=== PATIENT | female | born 1940 | race Two or more races ===

== ENCOUNTER 2018-11-25 08:13 | Inpatient (IN) | payer OTHER ==
--- NOTE | 2018-11-25 08:36 | PDOC ---
History of Present Illness - General Chief Complaint: Injury Stated Complaint: DIZZY & FELL Time Seen by Provider: 11/25/18 08:25 - History of Present Illness Initial Comments: Ms. Kearns is a 78 y/o female with PMH significant for KS s/p CABG and cardiac cath, hypothyroidism, hypotension, vertigo, presenting today for syncope and fall 2 hours ago. Reports that she was getting up from the toilet when she felt weakness in her legs and fell. Reports LOC. Reports that she fell on her left hip. Denies head trauma. Denies chest pain or palpitations prior to fall. Denies shortness of breath. Reports nausea, denies vomiting. Denies headache. Reports mild dizziness. Reports mildly decreased PO intake. Past History - Past Medical History Allergies/Adverse Reactions: Allergies Allergy/AdvReac Type Severity Reaction Status Date / Time No Known Allergies Allergy Verified 10/01/18 08:32 Home Medications: Ambulatory Orders Acetaminophen [Pain Reliever] 500 mg PO QID PRN 08/29/15 Atorvastatin Ca [Lipitor] 40 mg PO HS 08/29/15 Calcium 250Mg/Vit-D 125 Units [Oscal 250 mg+D -] 1 combo PO DAILY 08/29/15 Diclofenac Sodium [Voltaren] 100 gm TP BID 08/29/15 Ergocalciferol (Vitamin D2) [Drisdol] 50,000 units PO WEEKLY 08/29/15 Meclizine HCl 25 mg PO HS 08/29/15 Oxycodone HCl/Acetaminophen [Percocet 5-325 mg Tablet] 1 tab PO Q4H PRN Ranolazine [Ranexa] 1,000 mg PO BID 08/29/15 Solifenacin Succinate [Vesicare -] 10 mg PO DAILY 08/29/15 Vitamin B Comp W-C [Total B with C] 1 each PO DAILY 08/29/15 Zolpidem Tartrate [Ambien] 5 mg PO HS 08/29/15 propRANOLol HCL [Inderal Xl] 80 mg PO DAILY 08/29/15 Aspirin 81 mg PO DAILY 11/25/18 Dexlansoprazole [Dexilant] 60 mg PO DAILY 11/25/18 Gabapentin 300 mg PO DAILY 11/25/18 Levothyroxine [Synthroid -] 50 mcg PO DAILY 11/25/18 Mirabegron [Myrbetriq] 50 mg PO DAILY 11/25/18 Quetiapine Fumarate [Seroquel -] 25 mg PO HS 11/25/18 Cardiac Disorders: Yes ([place]) COPD: No Thyroid Disease: Yes - Immunization History Immunization Up to Date: No - Psycho Social/Smoking Cessation Hx Smoking History: Never smoked Have you smoked in the past 12 months: No If you are a former smoker, when did you quit?: 18 years ago Information on smoking cessation initiated: No Hx Alcohol Use: No Drug/Substance Use Hx: No Substance Use Type: None Review of Systems - Review of Systems Comments:: ROS GENERAL/CONSTITUTIONAL: No fever or chills. Reports lower extremity weakness. HEAD, EYES, EARS, NOSE AND THROAT: No change in vision. No change in hearing. No sore throat._ CARDIOVASCULAR: No chest pain or shortness of breath_ RESPIRATORY: Denies cough, hemoptysis_ GASTROINTESTINAL: Reports nausea. Denies vomiting, diarrhea or constipation._ GENITOURINARY: Reports mild dysuria. Denies frequency, or change in urination._ MUSCULOSKELETAL: Reports left hip pain. No neck or back pain._ SKIN: No rash_ NEUROLOGIC: No headache, vertigo, change in strength/sensation. Reports LOC and dizziness. ENDOCRINE: No increased thirst. No abnormal weight change_ HEMATOLOGIC/LYMPHATIC: No anemia, easy bleeding, or history of blood clots._ ALLERGIC/IMMUNOLOGIC: No hives or skin allergy._ *Physical Exam - Vital Signs Last Vital Signs Temp Pulse Resp BP Pulse Ox 98.4 F 86 16 128/56 L 98 11/25/18 08:19 11/25/18 08:19 11/25/18 08:19 11/25/18 08:19 11/25/18 08:19 - Physical Exam Comments: GENERAL: Awake, alert, and oriented to person/place/time, in no acute distress_ HEAD: No signs of trauma, normocephalic, atraumatic _ EYES: PERRLA, EOMI, sclera anicteric, conjunctiva clear_ ENT: Hearing grossly normal, nares patent, oropharynx clear without exudates. No uvular deviation. Moist mucosa_ NECK: Normal ROM, supple, no lymphadenopathy, JVD, or masses_ LUNGS: No distress, speaks in full sentences, clear to auscultation bilaterally _ HEART: Regular rate and rhythm, normal S1 and S2, no murmurs appreciated, peripheral pulses normal and equal bilaterally._ ABDOMEN: Soft, nontender. No guarding, no rebound. No masses_ EXTREMITIES: Normal inspection, Normal range of motion, no edema. No clubbing or cyanosis_ NEUROLOGICAL: Cranial nerves II through XII grossly intact. Normal speech, normal gait, no focal sensorimotor deficits. Cerebellar testing negative. No ataxia. SKIN: Warm, Dry, normal turgor, no rashes or lesions noted. ED Treatment Course - LABORATORY CBC & Chemistry Diagram: 11/26/18 06:10 11/25/18 08:54 Medical Decision Making - Medical Decision Making 11/25/18 09:05 78F with hx of KS, CABG, cardiac cath, hypothyroid, hypotension, vertigo, presenting s/p syncope, lower extremity weakness, and fall 2 hours ago. DDx is broad includes syncope due to cardiac etiology vs orthostatic etiology vs dehydration. Will obtain CBC, CMP, UA/UC, EKG, trop, CT head, coags, CXR. Plan to admit for tele obs. 11/25/18 0833 EKG shows NSR, 83 bpm, no ST elevation/depression, QTC 390 ms. 11/25/18 11:41 CT head shows no acute intracranial pathology. 11/25/18 12:[address] Merchant's office, who admits for Dr. Erazo. Dr. José (covering MD ) paged. Discharge - Discharge Information Problems reviewed: Yes Clinical Impression/Diagnosis: Syncope Qualifiers: Syncope type: unspecified Qualified Code(s): R55 - Syncope and collapse Condition: Stable - Admission Yes - Follow up/Referral - Patient Discharge Instructions - Post Discharge Activity
[2018-11-25] MEDS ORDERED: ONDANSETRON 4 MG/2 ML VIAL IVPUSH ONE (09:02)
[2018-11-25] MEDS ORDERED: ONDANSETRON 4 MG/2 ML VIAL ONE (09:21)
--- NOTE | 2018-11-25 09:27 | PDOC ---
Attending Attestation - Resident Resident Name: Don Solomon - ED Attending Attestation I have performed the following: I have examined & evaluated the patient, The case was reviewed & discussed with the resident, I agree w/resident's findings & plan, Exceptions are as noted - HPI HPI: 11/25/18 09:24 78 F with h/o VT/CABG, hypothyroid, vertigo, presenting to ED with syncopal episode. Pt states that she was in the bathroom when the episode occurred. She recalls feeling weak in the legs but has no recollection of the fall. Pt awoke on the floor. Denies CP/SOB/palpitations. Does not know how long she was unconscious. Now complaining of nausea. - Physicial Exam PE: 11/25/18 09:26 "GENERAL: Awake, alert, and fully oriented, in no acute distress. HEAD: No signs of trauma EYES: PERRLA, EOMI, sclera anicteric, conjunctiva clear ENT: Auricles normal inspection, hearing grossly normal, nares patent, oropharynx clear without exudates. Moist mucosa NECK: Nontender, no stepoffs, Normal ROM, supple, no lymphadenopathy, JVD, or masses LUNGS: Breath sounds equal, clear to auscultation bilaterally. No wheezes, and no crackles HEART: Regular rate and rhythm, normal S1 and S2, no murmurs, rubs or gallops ABDOMEN: Soft, nontender, normoactive bowel sounds. No guarding, no rebound. No masses EXTREMITIES: Normal range of motion, no edema. No clubbing or cyanosis. No cords, erythema, or tenderness NEUROLOGICAL: Cranial nerves II through XII intact. 5/5 strength and sensation in all extremities, Normal speech, normal gait, normal cerebellar function SKIN: Warm, Dry, normal turgor, no rashes or lesions noted. - Medical Decision Making 11/25/18 09:26 78 F with syncopal episode in the bathroom. EKG is NSR with no ischemic changes or evidence of arrhythmia. - labs, trop - CT head - CXR - Tele obs
[2018-11-25 09:29] LABS: BASO % 0.3 % (0-2.0); EOS % 0.8 % (0-4.5); HEMATOCRIT 43.8 % (32.4-45.2); HEMOGLOBIN 14.4 GM/dL (10.7-15.3); LYMPH % 9.8 % (8-40); MCH 29.7 pg (25.7-33.7); MCHC 32.8 g/dl (32.0-36.0); MEAN CELL VOLUME 90.3 fl (80-96); MEAN PLT VOLUME 11.2 fl (7.5-11.1); MONO % 3.6 % (3.8-10.2); NEUT % 85.5 % (42.8-82.8); PLATELET COUNT 142 K/MM3 (134-434); RBC 4.85 M/mm3 (3.60-5.2); RDW 13.3 % (11.6-15.6); WHITE BLOOD COUNT 17.1 K/mm3 (4.0-10.0)
[2018-11-25 09:40] LABS: INR 1.03 (0.83-1.09); PROTHROMBIN TIME (PATIENT) 12.2 SEC (9.7-13.0)
[2018-11-25 10:03] LABS: ALBUMIN 3.9 g/dl (3.4-5.0); BILIRUBIN,TOTAL 0.8 mg/dL (0.2-1); CALCIUM 9.2 mg/dL (8.5-10.1); CREATININE 0.9 mg/dL (0.55-1.3); POTASSIUM 4.9 mmol/L (3.5-5.1); TOT PROT 7.9 g/dl (6.4-8.2)
[2018-11-25 12:17] LABS: PH,URINE 7.5 (5.0-8.0); URINE APPEARANCE CLEAR; URINE BILIRUBIN NEGATIVE (NEGATIVE); URINE COLOR YELLOW; URINE GLUCOSE (UA) NEGATIVE (NEGATIVE); URINE KETONE NEGATIVE (NEGATIVE); URINE LEUK ESTERASE NEGATIVE (NEGATIVE); URINE NITRITE NEGATIVE (NEGATIVE); URINE PROTEIN NEGATIVE (NEGATIVE)
--- NOTE | 2018-11-25 14:09 | HP ---
Admitting History and Physical - Admission Chief Complaint: came in for syncopal fall History of Present Illness: 78 yr old female came in from home for syncopal episode. per patient she was going to the bathroom on the toilet seat and trying to get up when her legs gave away and she slid on the floor and then she was trying to left herself up but then she started to sweat and felt dizzy as if she was going to pass out then she passed out for about 5 minutes then when she awoke she called for help no nausea ,no palpitations, no chest pain . History Source: Patient - Past Medical History Cardiovascular: Yes: CAD, [place] Endocrine: Yes: Hypothyroidism - Smoking History Smoking history: Never smoked Have you smoked in the past 12 months: No If you are a former smoker, when did you quit?: 18 years ago - Alcohol/Substance Use Hx Alcohol Use: No Home Medications - Allergies Allergies/Adverse Reactions: Allergies Allergy/AdvReac Type Severity Reaction Status Date / Time No Known Allergies Allergy Verified 10/01/18 08:32 - Home Medications Home Medications: Ambulatory Orders Acetaminophen [Pain Reliever] 500 mg PO QID PRN 08/29/15 Atorvastatin Ca [Lipitor] 40 mg PO HS 08/29/15 Calcium 250Mg/Vit-D 125 Units [Oscal 250 mg+D -] 1 combo PO DAILY 08/29/15 Diclofenac Sodium [Voltaren] 100 gm TP BID 08/29/15 Ergocalciferol (Vitamin D2) [Drisdol] 50,000 units PO WEEKLY 08/29/15 Meclizine HCl 25 mg PO HS 08/29/15 Oxycodone HCl/Acetaminophen [Percocet 5-325 mg Tablet] 1 tab PO Q4H PRN Ranolazine [Ranexa] 1,000 mg PO BID 08/29/15 Solifenacin Succinate [Vesicare -] 10 mg PO DAILY 08/29/15 Vitamin B Comp W-C [Total B with C] 1 each PO DAILY 08/29/15 Zolpidem Tartrate [Ambien] 5 mg PO HS 08/29/15 propRANOLol HCL [Inderal Xl] 80 mg PO DAILY 08/29/15 Aspirin 81 mg PO DAILY 11/25/18 Dexlansoprazole [Dexilant] 60 mg PO DAILY 11/25/18 Gabapentin 300 mg PO DAILY 11/25/18 Levothyroxine [Synthroid -] 50 mcg PO DAILY 11/25/18 Mirabegron [Myrbetriq] 50 mg PO DAILY 11/25/18 Quetiapine Fumarate [Seroquel -] 25 mg PO HS 11/25/18 Review of Systems - Review of Systems Cardiovascular: reports: No Symptoms Respiratory: reports: No Symptoms Gastrointestinal: reports: No Symptoms Physical Examination Vital Signs: Vital Signs Temperature 99.2 F 11/25/18 13:38 Pulse Rate 76 11/25/18 13:38 Respiratory Rate 20 11/25/18 13:38 Blood Pressure 97/66 11/25/18 13:38 O2 Sat by Pulse Oximetry (%) 99 11/25/18 13:38 Constitutional: Yes: Calm, Thin Cardiovascular: Yes: Regular Rate and Rhythm, S1, S2 Respiratory: Yes: CTA Bilaterally Gastrointestinal: Yes: Normal Bowel Sounds, Soft Edema: No Neurological: Yes: Alert Labs: CBC, BMP 11/25/18 08:50 11/25/18 08:54 Imaging - Results X-ray: Report Reviewed (no fracture no infarct) Cat Scan: Report Reviewed Problem List - Problems (1) Syncope Assessment/Plan: telemetry carotid dopler echo CE 3 sets cardiology neurology PT evaluation lipid panel statin Code(s): R55 - SYNCOPE AND COLLAPSE (2) Hypothyroid Assessment/Plan: TSH check Code(s): E03.9 - HYPOTHYROIDISM, UNSPECIFIED (3) Leukocytosis Assessment/Plan: check urine culture, repeat cbc and trend wbc count no fever , cxr clear blood culture Code(s): D72.829 - ELEVATED WHITE BLOOD CELL COUNT, UNSPECIFIED
--- NOTE | 2018-11-25 15:21 | CON.CARD ---
Consult Consult Specialty:: Cardiology Referred by:: Estefanía Collins Reason for Consultation:: Syncope - History of Present Illness Chief Complaint: Syncope History of Present Illness: Ms. Kearns is a 78 year old with a pmhx of CAD/CA 7 years ago, hypothyroidism, vertigo, and arthritis presents with syncope. Was home in bathroom and reports dizzy, diaphoretic and weakness and fell to floor. Unclear if lost consciousness. No chest pain, sob, or palpitations during event. [place] weak and could not get from the floor. CT head no acute m/s/b. Feels well at this moment. - Past Medical History Cardio/Vascular: Yes: CAD, CA Endocrine: Yes: Hypothyroidism - Alcohol/Substance Use Hx Alcohol Use: No - Smoking History Smoking history: Never smoked Have you smoked in the past 12 months: No If you are a former smoker, when did you quit?: 18 years ago Home Medications - Allergies Allergies/Adverse Reactions: Allergies Allergy/AdvReac Type Severity Reaction Status Date / Time No Known Allergies Allergy Verified 10/01/18 08:32 - Home Medications Home Medications: Ambulatory Orders Acetaminophen [Pain Reliever] 500 mg PO QID PRN 08/29/15 Atorvastatin Ca [Lipitor] 40 mg PO HS 08/29/15 Calcium 250Mg/Vit-D 125 Units [Oscal 250 mg+D -] 1 combo PO DAILY 08/29/15 Diclofenac Sodium [Voltaren] 100 gm TP BID 08/29/15 Ergocalciferol (Vitamin D2) [Drisdol] 50,000 units PO WEEKLY 08/29/15 Meclizine HCl 25 mg PO HS 08/29/15 Oxycodone HCl/Acetaminophen [Percocet 5-325 mg Tablet] 1 tab PO Q4H PRN Ranolazine [Ranexa] 1,000 mg PO BID 08/29/15 Solifenacin Succinate [Vesicare -] 10 mg PO DAILY 08/29/15 Vitamin B Comp W-C [Total B with C] 1 each PO DAILY 08/29/15 Zolpidem Tartrate [Ambien] 5 mg PO HS 08/29/15 propRANOLol HCL [Inderal Xl] 80 mg PO DAILY 08/29/15 Aspirin 81 mg PO DAILY 11/25/18 Dexlansoprazole [Dexilant] 60 mg PO DAILY 11/25/18 Gabapentin 300 mg PO DAILY 11/25/18 Levothyroxine [Synthroid -] 50 mcg PO DAILY 11/25/18 Mirabegron [Myrbetriq] 50 mg PO DAILY 11/25/18 Quetiapine Fumarate [Seroquel -] 25 mg PO HS 11/25/18 Vital Signs: Vital Signs Temperature 99.2 F 11/25/18 13:38 Pulse Rate 76 11/25/18 13:38 Respiratory Rate 20 11/25/18 13:38 Blood Pressure 97/66 11/25/18 13:38 O2 Sat by Pulse Oximetry (%) 99 11/25/18 13:38 Constitutional: Yes: No Distress Respiratory: Yes: CTA Bilaterally Gastrointestinal: Yes: Soft Cardiovascular: Yes: Regular Rate and Rhythm JVD: No Carotid Bruit: No PMI: Non-Displaced Heart Sounds: Yes: S1, S2 Murmur: No: Systolic Murmur Edema: No - Other Data Labs, Other Data: CBC, BMP 11/25/18 08:50 11/25/18 08:54 INR, PTT INR 1.03 (0.83-1.09) 11/25/18 08:50 Troponin, BNP 11/25/18 08:54 Troponin I < 0.02 Troponin, BNP 11/25/18 08:54 Troponin I < 0.02 Imaging - Results Chest X-ray: Report Reviewed Cat Scan: Report Reviewed Problem List - Problems (1) Syncope Code(s): R55 - SYNCOPE AND COLLAPSE Assessment/Plan 78 year old female with a pmhx of cad/mi, hld, hypothyroidism, and arthritis admitted with syncope -EKG: sinus rhythm at 83bpm, rad, low voltage, no ischemic changes -Admit to tele CT head no acute m/s/b IVF's WBC 17 infectious work up Echocardiogram Carotid duplex CE's x3 Clarify medications at home as list as multiple meds which could contribute. Aspirin/statin -Would check with Dr. Erazo's office if she follows with a java lead architect also would check what her cardiac history is as patient is very poor historian.
--- NOTE | 2018-11-25 15:54 | EKG ---
Test Reason : Blood Pressure : / mmHG Vent. Rate : 083 BPM Atrial Rate : 083 BPM P-R Int : 124 ms QRS Dur : 078 ms QT Int : 332 ms P-R-T Axes : 075 102 052 degrees QTc Int : 390 ms NORMAL SINUS RHYTHM LOW VOLTAGE QRS BORDERLINE ECG WHEN COMPARED WITH ECG OF 29-AUG-2015 15:20, T WAVE VARIATION Confirmed by TAMERA CANELA MD ([id number]) on 11/25/2018 3:53:32 PM Referred By: Confirmed By:TAMERA CANELA MD
[2018-11-25] MEDS: HEPARIN NA (PORCINE) 5,000 UNITS/ML 1ML VIAL SQ SCH (21:50)
[2018-11-25] MEDS: RANOLAZINE E.R. 1,000 MG TABLET (FP) PO SCH (21:50)
[2018-11-25] MEDS: QUEtiapine FUMARATE 25 MG TABLET (FP) PO SCH (21:50)
[2018-11-25] MEDS: ATORVASTATIN CA 40 MG TABLET (FP) PO SCH (21:50)
[2018-11-25 23:45] VITALS: BMI 23.3
[2018-11-26] MEDS: LEVOTHYROXINE NA 50 MCG TABLET (FP) PO SCH (05:59)
[2018-11-26 06:30] LABS: BASO % 0.6 % (0-2.0); EOS % 2.3 % (0-4.5); HEMATOCRIT 40.9 % (32.4-45.2); HEMOGLOBIN 13.6 GM/dL (10.7-15.3); LYMPH % 37.8 % (8-40); MCHC 33.2 g/dl (32.0-36.0); MEAN CELL VOLUME 90.4 fl (80-96); MEAN PLT VOLUME 10.5 fl (7.5-11.1); MONO % 7.6 % (3.8-10.2); NEUT % 51.7 % (42.8-82.8); PLATELET COUNT 142 K/MM3 (134-434); RBC 4.52 M/mm3 (3.60-5.2); RDW 13.5 % (11.6-15.6); WHITE BLOOD COUNT 8.2 K/mm3 (4.0-10.0)
[2018-11-26 06:43] LABS: INR 1.14 (0.83-1.09); PROTHROMBIN TIME (PATIENT) 13.5 SEC (9.7-13.0)
[2018-11-26 06:46] LABS: ACTIVATED PTT 31.7 SECONDS (25.2-36.5)
[2018-11-26 07:37] LABS: PHOSPHOROUS 4.5 mg/dL (2.5-4.9)
[2018-11-26 07:38] LABS: CHOLESTEROL 198 mg/dL (50-200); HDL CHOLESTEROL 63 mg/dL (40-60); LDL CHOLESTEROL (ONLY SJRH) 124 mg/dL (5-100); MAGNESIUM 2.3 mg/dL (1.8-2.4); TRIGLYCERIDES 80 mg/dL (0-150)
--- NOTE | 2018-11-26 08:13 | PN ---
Progress Note, Physician History of Present Illness: 8 year old with a pmhx of CAD/PR 7 years ago, hypothyroidism, vertigo, and arthritis presents with syncope. Was home in bathroom and reports dizzy, diaphoretic and weakness and fell to floor. Unclear if lost consciousness. No chest pain, sob, or palpitations during event. [place] weak and could not get from the floor. Offers no complaints this am in bed - Current Medication List Current Medications: Active Medications Aspirin (Asa -) 81 mg PO DAILY [facility] Atorvastatin Calcium (Lipitor -) 40 mg PO HS [facility] Last Admin: 11/25/18 21:50 Dose: 40 mg Heparin Sodium (Porcine) (Heparin -) 5,000 unit SQ BID [facility] Last Admin: 11/25/18 21:50 Dose: 5,000 unit Levothyroxine Sodium (Synthroid -) 50 mcg PO DAILY@0700 [facility] Last Admin: 11/26/18 05:59 Dose: 50 mcg Quetiapine Fumarate (Seroquel -) 25 mg PO [facility] Last Admin: 11/25/18 21:50 Dose: 25 mg Ranolazine (Ranexa -) 1,000 mg PO BID [facility] Last Admin: 11/25/18 21:50 Dose: 1,000 mg - Objective Vital Signs: Vital Signs Temperature 98.1 F 11/26/18 06:00 Pulse Rate 72 11/26/18 06:00 Respiratory Rate 20 11/26/18 06:00 Blood Pressure 90/50 L 11/26/18 06:00 O2 Sat by Pulse Oximetry (%) 85 L 11/25/18 20:00 Cardiovascular: Yes: Regular Rate and Rhythm Respiratory: Yes: Regular, CTA Bilaterally Gastrointestinal: Yes: Normal Bowel Sounds, Soft. No: Tenderness Neurological: Yes: Alert, Oriented Labs: CBC, BMP 11/26/18 06:10 11/25/18 08:54 INR, PTT INR 1.14 (0.83-1.09) H 11/26/18 06:10 Problem List - Problems (1) Syncope Assessment/Plan: maybe vasovagal==bp low this am oob and monitor ct head nad await echo hold inderal Code(s): R55 - SYNCOPE AND COLLAPSE (2) Leukocytosis Assessment/Plan: improved monitor Code(s): D72.829 - ELEVATED WHITE BLOOD CELL COUNT, UNSPECIFIED (3) UTI (urinary tract infection) Assessment/Plan: will start abx Microbiology 11/25/18 11:30 Urine - Urine Clean Catch Urine Culture - Preliminary Lactose Fermenting Neg Bacilli Proteus Species Code(s): N39.0 - URINARY TRACT INFECTION, SITE NOT SPECIFIED Qualifiers: Encounter type: initial encounter
[2018-11-26] MEDS ORDERED: DEXTROSE 5%-WATER - 50 ML IVPB ONE (09:49)
[2018-11-26] MEDS ORDERED: cefTRIAXone SODIUM 1 GM VIAL ONE (09:49)
[2018-11-26] MEDS: RANOLAZINE E.R. 1,000 MG TABLET (FP) PO SCH (10:09)
[2018-11-26] MEDS: HEPARIN NA (PORCINE) 5,000 UNITS/ML 1ML VIAL SQ SCH ×2 (10:09→21:25)
[2018-11-26] MEDS: ASPIRIN 81 MG CHEWABLE TABLETS PO SCH (10:09)
[2018-11-26] MEDS: CEFTRIAXONE 1 GM in DEXTROSE 5%-WATER - 50 ML IVPB SCH (10:10)
--- NOTE | 2018-11-26 10:36 | PN ---
Progress Note, Physician History of Present Illness: pt seen and examined today in nad. lightheaded with standing this am. orthostatic BP checked and significant drop in BP associated with lightheadedness. notes palpitations last night that correlated with PSVT on tele. - Current Medication List Current Medications: Active Medications Aspirin (Asa -) 81 mg PO DAILY [facility] Last Admin: 11/26/18 10:09 Dose: 81 mg Atorvastatin Calcium (Lipitor -) 40 mg PO HS [facility] Last Admin: 11/25/18 21:50 Dose: 40 mg Heparin Sodium (Porcine) (Heparin -) 5,000 unit SQ BID [facility] Last Admin: 11/26/18 10:09 Dose: 5,000 unit Ceftriaxone Sodium 1 gm/ (Dextrose) 50 mls @ 200 mls/hr IVPB DAILY [facility]; Protocol Last Admin: 11/26/18 10:10 Dose: 200 mls/hr Levothyroxine Sodium (Synthroid -) 50 mcg PO DAILY@0700 [facility] Last Admin: 11/26/18 05:59 Dose: 50 mcg Quetiapine Fumarate (Seroquel -) 25 mg PO HS [facility] Last Admin: 11/25/18 21:50 Dose: 25 mg Ranolazine (Ranexa -) 1,000 mg PO BID [facility] Last Admin: 11/26/18 10:09 Dose: 1,000 mg - Objective Vital Signs: Vital Signs Temperature 98.1 F 11/26/18 06:00 Pulse Rate 72 11/26/18 06:00 Respiratory Rate 20 11/26/18 06:00 Blood Pressure 90/50 L 11/26/18 06:00 O2 Sat by Pulse Oximetry (%) 85 L 11/25/18 20:00 Constitutional: Yes: No Distress, Calm Eyes: Yes: Conjunctiva Clear, EOM Intact HENT: Yes: Atraumatic, Normocephalic Neck: Yes: Supple, Trachea Midline Cardiovascular: Yes: Regular Rate and Rhythm, S1, S2. No: Bradycardia, Tachycardia, Pulse Irregular, Bruit, JVD, Gallop, Murmur, Rub, S3, S4, Varicosities Respiratory: Yes: Regular, CTA Bilaterally. No: Rales, Rhonchi, Wheezes Gastrointestinal: Yes: Normal Bowel Sounds, Soft. No: Distention, Tenderness Extremities: Yes: WNL Edema: No Peripheral Pulses WNL: Yes Neurological: Yes: Alert, Oriented Psychiatric: Yes: Alert, Oriented Labs: CBC, BMP 11/26/18 06:10 11/25/18 08:54 INR, PTT INR 1.14 (0.83-1.09) H 11/26/18 06:10 - ....Imaging Chest X-ray: Report Reviewed, Image Reviewed EKG: Report Reviewed, Image Reviewed Other: Report Reviewed, Image Reviewed (tele-nsr, episode of PSVT last night) Assessment/Plan 78 year old woman with a pmhx of cad/mi, hld, hypothyroidism, and arthritis admitted with syncope Syncope-likely secondary to orthostatic hypotension -orthostatic BP checked this am with significant drop in BP and symptoms of lightheadedness with standing -EKG: sinus rhythm at 83bpm, rad, low voltage, no ischemic changes -tele 1 episode of PSVT last night that correlates with episode of palpitations as per PT -PSVT unlikely source of syncope -stop Ranexa as unclear if benefit, can be re-evaluated with outpatient litigation coordinator -ensure adequate hydration, IVF if needed, encourage po fluid intake -trial of compression stockings -slow rise from a seated/lying position and sit/lie down immediately if lightheaded -fup echo results -cont infectious work up/treatment as per PMD CAD-stable -needs outpatient cardiology fup -cont ASA and statin -bblocker if BP tolerates, can be re-evaluated as outpatient PSVT-1 episode overnight that correlated with palpitations -not responsible for syncope -treatment of conditions as above -outpatient fup and further event monitoring can be considered -bblocker to be considered when BP tolerates, as outpatient
--- NOTE | 2018-11-26 11:31 | CONSULT ---
Consult - text type - Consultation Consultation Note: NEUROlOGY CONSULT GREATLY APPRECIATED: Events reviewed. Cardiology consult read and appreciated. Daughter in law and granddaughter aide in translation and provide history. This 78 yo RH woman is known to me (last seen 07/20/17) with chronic migraine headaches and Restless Limbs, on propranolol 80 qd and pramipexole 0.25 BID. PMHX: HTN, hypothyroid, HLD, ASHD, GERD, urinary frequency, COPD, chronic LBP. On: tylenol, atorvastatin, diclofenac, Vit D, meclizine 25 HS, Percocet 5-325 q4H, Ranexa, vesicare, Vit B, Ambien, ASA 81, dexilant, gabapentin 300 mg, Synthroid, myrbetriq, quetiapine. Lives at home alone and has home health attendant from -2; M-F. Family members accompany patient in evening hours. Ambulates +/- cane. Admitted after fall when getting up out of bed in am with prodromal "lightheadedness" and fall to left side with claim of head trauma and possible LOC. [place] then called her niece for help and was brought to ER. Head CT (reviewed): Mild atrophy with Chronic, diffuse periventricular ischemic changes. EKG sinus, but period of PVST while on telemetry. WBC 17.1-> 8.2; B12= 380; TSH= 4.15; UA neg; UC < 100,000 polyorganisms - on IV rocephin Of note, the daughter in law notes this event has occurred exactly 2 years after the of her son of an overdose in the home she lives in. She believes Michelle is depressed and non-compliant with medications. ODETTE: Cor reg. BP 97-115/66. No bruit. Neck supple. Neg SLR. No evidence of head trauma. NEURO: Awake, alert, responsive. Speech fluent in [place]. [facility]. Nov. Trump. CNII-CNXII: EOM's full without nystagmus. Full jean. No facial. Gag ok. MOtor: No drift or tremor. Strength normal. Reduced SALLIE's B/L with spread. Reflexes normal, except for absent AJ's. Plantars silent. Coordination: No FTN dystaxia. Romberg + Gait: Sl flexed, shuffling. Can walk on heels, toes. Not retropulsive. Impression: S/P fall with Multi-factorial gait ataxia with contributions of: SOLAR DESIGNER/INSTALLER microvascular disease, Lumbosacral spinal stenosis vs. Peripheral Neuropathy R/O Syncope. ? Arrhythmia Worsened by Toxic-Metabolic Encephalopathy (? UTI) Depression Suggest: Continue antibiotics and hydration per ID Continue tele monitoring and Orthostatic BP's Carotid duplex D/C meclizine, percocet, ambien, quetiapine, vesicare. Hold propranolol until BP improves. May need alternative as may worsen depression. Start Buproprion XL 150 mg po daily for depression PT eval for gait safety with walker medical staff services coordinator eval/ Home safety check Neuro F/U as out patient. Thank you very much, Ino Smith MD
--- NOTE | 2018-11-26 12:20 | ECHO ---
Name: SILVIO PIZANO Exam:Adult Echocardiogram Study Date: 11/26/2018 09:17 AM Age: 78 yrs Reason For Study: Look at Ejection Fraction Height: 64 in Weight: 133 lb BSA: 1.6 m2 MMode/2D Measurements & Calculations IVSd: 0.91 cm LA dimension: 2.5 cm LVIDd: 3.3 cm ACS: 1.8 cm LVIDs: 2.6 cm LVPWd: 0.93 cm EDV(Teich): 45.4 ml LVOT diam: 1.7 cm ESV(Teich): 23.9 ml RV S Rachel: 12.9 cm/sec Doppler Measurements & Calculations MV E max rachel: 59.2 cm/sec TR max rachel: 327.8 cm/sec MV A max rachel: 93.3 cm/sec TR max P.0 mmHg MV E/A: 0.63 RVSP(TR): 53.0 mmHg MV dec time: 0.29 sec Med Peak E' Rachel: 7.4 cm/sec RAP systole: 10.0 mmHg Med E/e': 8.1 Lat Peak E' Rachel: 10.5 cm/sec Lat E/e': 5.7 Procedure A two-dimensional transthoracic echocardiogram with color flow and Doppler was performed. The study w as technically difficult with many images being suboptimal in quality. The patient was in normal sinus r hythm during the exam. Left Ventricle The left ventricle is normal in size. Left ventricular systolic function is grossly normal. Ejection Fraction = 55-60%. E/A reversal consistent with but not diagnostic of poor LV compliance. Right Ventricle The right ventricle is normal size. The right ventricular systolic function is normal. Atria The left atrial size is normal. Right atrial size is normal. Mitral Valve The mitral valve is normal. There is no mitral regurgitation noted. Tricuspid Valve The tricuspid valve is normal. There is mild tricuspid regurgitation. Right ventricular systolic pres sure is elevated at 57 mmhg. There is moderate pulmonary hypertension. Aortic Valve There is mild aortic sclerosis.;. The aortic valve opens well. No aortic regurgitation is present. Pulmonic Valve The pulmonic valve is not well visualized. There is no pulmonic valvular regurgitation. Great Vessels The aortic root is not well visualized but is probably normal size. Pericardium/Pleura There is no pericardial effusion. Interpretation Summary Left ventricular systolic function is grossly normal. Ejection Fraction = 55-60%. E/A reversal consistent with but not diagnostic of poor LV compliance The right ventricular systolic function is normal. There is mild tricuspid regurgitation. Right ventricular systolic pressure is elevated at 57 mmhg. There is no pericardial effusion. MD Irvin Dickerson 11/26/2018 12:19 PM
[2018-11-26] MEDS: ATORVASTATIN CA 40 MG TABLET (FP) PO SCH (21:25)
[2018-11-26] MEDS: QUEtiapine FUMARATE 25 MG TABLET (FP) PO SCH (21:25)
[2018-11-27] MEDS: LEVOTHYROXINE NA 50 MCG TABLET (FP) PO SCH (06:19)
--- NOTE | 2018-11-27 07:38 | PN ---
Progress Note, Physician - Current Medication List Current Medications: Active Medications Aspirin (Asa -) 81 mg PO DAILY ON LICENSE OF [facility] Last Admin: 11/26/18 10:09 Dose: 81 mg Atorvastatin Calcium (Lipitor -) 40 mg PO HS ON LICENSE OF [facility] Last Admin: 11/26/18 21:25 Dose: 40 mg Heparin Sodium (Porcine) (Heparin -) 5,000 unit SQ BID ON LICENSE OF [facility] Last Admin: 11/26/18 21:25 Dose: 5,000 unit Ceftriaxone Sodium 1 gm/ (Dextrose) 50 mls @ 200 mls/hr IVPB DAILY ON LICENSE OF [facility]; Protocol Last Admin: 11/26/18 10:10 Dose: 200 mls/hr Levothyroxine Sodium (Synthroid -) 50 mcg PO DAILY@0700 ON LICENSE OF [facility] Last Admin: 11/27/18 06:19 Dose: 50 mcg Quetiapine Fumarate (Seroquel -) 25 mg PO HS ON LICENSE OF [facility] Last Admin: 11/26/18 21:25 Dose: 25 mg - Objective Vital Signs: Vital Signs Temperature 98.4 F 11/27/18 06:00 Pulse Rate 66 11/27/18 06:00 Respiratory Rate 18 11/27/18 06:00 Blood Pressure 114/63 11/27/18 06:00 O2 Sat by Pulse Oximetry (%) 92 L 11/26/18 21:00 Cardiovascular: Yes: Regular Rate and Rhythm Respiratory: Yes: Regular, CTA Bilaterally Gastrointestinal: Yes: Normal Bowel Sounds, Soft Labs: CBC, BMP 11/26/18 06:10 11/25/18 08:54 INR, PTT INR 1.14 (0.83-1.09) H 11/26/18 06:10 Problem List - Problems (1) Syncope Assessment/Plan: maybe orthostatic==bp low this am oob and monitor ct head nad await echo hold inderal and ranexa if bp stable plan for dc Code(s): R55 - SYNCOPE AND COLLAPSE Qualifiers: Syncope type: unspecified Qualified Code(s): R55 - Syncope and collapse (2) Leukocytosis Assessment/Plan: improved monitor Code(s): D72.829 - ELEVATED WHITE BLOOD CELL COUNT, UNSPECIFIED (3) UTI (urinary tract infection) Assessment/Plan: will start abx Microbiology 11/25/18 11:30 Urine - Urine Clean Catch Urine Culture - Preliminary Lactose Fermenting Neg Bacilli Proteus Species Code(s): N39.0 - URINARY TRACT INFECTION, SITE NOT SPECIFIED Qualifiers: Encounter type: initial encounter
[2018-11-27] MEDS ORDERED: DEXTROSE 5%-WATER - 50 ML IVPB ONE (10:15)
[2018-11-27] MEDS ORDERED: cefTRIAXone SODIUM 1 GM VIAL ONE (10:15)
[2018-11-27] MEDS: HEPARIN NA (PORCINE) 5,000 UNITS/ML 1ML VIAL SQ SCH (10:35)
[2018-11-27] MEDS: ASPIRIN 81 MG CHEWABLE TABLETS PO SCH (10:35)
[2018-11-27] MEDS: CEFTRIAXONE 1 GM in DEXTROSE 5%-WATER - 50 ML IVPB SCH (10:36)
--- NOTE | 2018-11-27 14:54 | PN ---
Progress Note, Physician Chief Complaint: No complaints today Sinus with no events on tele last 24 hours History of Present Illness: Ms. 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 Was home in bathroom and reports dizzy, diaphoretic and weakness and fell to floor. Unclear if lost consciousness. No chest pain, sob, or palpitations during event. [place] weak and could not get from the floor. CT head no acute m/s/b. Feels well at this moment. - Current Medication List Current Medications: Active Medications Aspirin (Asa -) 81 mg PO DAILY [facility] Last Admin: 11/27/18 10:35 Dose: 81 mg Atorvastatin Calcium (Lipitor -) 40 mg PO HS [facility] Last Admin: 11/26/18 21:25 Dose: 40 mg Heparin Sodium (Porcine) (Heparin -) 5,000 unit SQ BID [facility] Last Admin: 11/27/18 10:35 Dose: 5,000 unit Ceftriaxone Sodium 1 gm/ (Dextrose) 50 mls @ 200 mls/hr IVPB DAILY [facility]; Protocol Last Admin: 11/27/18 10:36 Dose: 200 mls/hr Levothyroxine Sodium (Synthroid -) 50 mcg PO DAILY@0700 [facility] Last Admin: 11/27/18 06:19 Dose: 50 mcg Quetiapine Fumarate (Seroquel -) 25 mg PO HS [facility] Last Admin: 11/26/18 21:25 Dose: 25 mg - Objective Vital Signs: Vital Signs Temperature 98.1 F 11/27/18 09:55 Pulse Rate 69 11/27/18 09:55 Respiratory Rate 18 11/27/18 09:55 Blood Pressure 104/51 L 11/27/18 09:55 O2 Sat by Pulse Oximetry (%) 96 11/27/18 09:00 Constitutional: Yes: No Distress Neck: Yes: Supple Cardiovascular: Yes: Regular Rate and Rhythm Respiratory: Yes: CTA Bilaterally Gastrointestinal: Yes: Soft Edema: No Labs: CBC, BMP 11/26/18 06:10 11/25/18 08:54 INR, PTT INR 1.14 (0.83-1.09) H 11/26/18 06:10 Problem List - Problems (1) Syncope Code(s): R55 - SYNCOPE AND COLLAPSE Qualifiers: Syncope type: unspecified Qualified Code(s): R55 - Syncope and collapse Assessment/Plan 78 year old female with a pmhx of cad/mi, hld, hypothyroidism, and arthritis admitted with syncope -EKG: sinus rhythm at 83bpm, rad, low voltage, no ischemic changes 1) Syncope Likely related to orthostatics Feels well. IVF's as needed. Encourage PO hydration. Echo normal LVEF and no significant valve disease Tele uneventful last 24 hours Abx as per primary team with improvement in WBC. -Compression stockings -Carotids as inpatient or outpatient 2) CAD Aspirin/statin Outpt follow up Will sign off at this time. Please call with any further questions or clinical changes.
[2018-11-27 15:21] VITALS: BP 108/55; PULSE 66; TEMP 98.2
--- NOTE | 2018-11-27 15:38 | DS ---
Physical Examination Vital Signs: Vital Signs Temperature 98.2 F 11/27/18 14:20 Pulse Rate 66 11/27/18 14:20 Respiratory Rate 16 11/27/18 14:20 Blood Pressure 108/55 L 11/27/18 14:20 O2 Sat by Pulse Oximetry (%) 96 11/27/18 09:00 Labs: CBC, BMP 11/26/18 06:10 11/25/18 08:54 Discharge Summary Problems reviewed: Yes Reason For Visit: SYNCOPE Current Active Problems Hypothyroid (Acute) Leukocytosis (Acute) Syncope (Acute) Condition: Improved - Instructions Referrals: Servando Erazo MD [Primary Care Provider] - 1 Week Disposition: HOME - Home Medications Comprehensive Discharge Medication List: Ambulatory Orders Acetaminophen [Pain Reliever] 500 mg PO QID PRN 08/29/15 Atorvastatin Ca [Lipitor] 40 mg PO HS 08/29/15 Calcium 250Mg/Vit-D 125 Units [Oscal 250 mg+D -] 1 combo PO DAILY 08/29/15 Meclizine HCl 25 mg PO HS 08/29/15 Oxycodone HCl/Acetaminophen [Percocet 5-325 mg Tablet] 1 tab PO Q4H PRN Vitamin B Comp W-C [Total B with C -] 1 each PO DAILY 08/29/15 Zolpidem Tartrate [Ambien] 5 mg PO HS 08/29/15 Aspirin 81 mg PO DAILY 11/25/18 Dexlansoprazole [Dexilant] 60 mg PO DAILY 11/25/18 Gabapentin 300 mg PO DAILY 11/25/18 Levothyroxine [Synthroid -] 50 mcg PO DAILY 11/25/18 Mirabegron [Myrbetriq] 50 mg PO DAILY 11/25/18 Quetiapine Fumarate [Seroquel -] 25 mg PO HS 11/25/18
[2018-11-27] MEDS ORDERED: CEFUROXIME AXETIL 250 MG TABLET PO SCH (22:00)
== END 2018-11-27 18:01 | disposition home or self-care (01) | DRG 312 ==
LOC: JER 08:13 → JERBED 11:55 → J4S 18:10
PROVIDERS: ADMIT Student in an Organized Health Care Education/Training Program; ATTEND Student in an Organized Health Care Education/Training Program
DX: I95.1 Orthostatic hypotension (principal); G93.41 Metabolic encephalopathy; N39.0 Urinary tract infection, site not specified; I47.1 Supraventricular tachycardia; R26.0 Ataxic gait; I25.10 Atherosclerotic heart disease of native coronary artery without angina pectoris; I10 Essential (primary) hypertension; E03.9 Hypothyroidism, unspecified; G25.81 Restless legs syndrome; J44.9 Chronic obstructive pulmonary disease, unspecified; R35.0 Frequency of micturition; D72.829 Elevated white blood cell count, unspecified
CPT/HCPCS: 36415; 70450-TC; 71045-TC-FY; 72170-TC-FY; 80053; 80061; 81003; 82550; 82607; 83036; 83721; 83735; 84100; 84443; 84484; 85025; 85027; 85610; 85730; 87040; 87086; 87186; 93005; 93010; 93306-TC; 97116-GP; 97161-GP; 99284-25; J1644

== ENCOUNTER 2020-03-06 16:48 | Inpatient (IN) | payer OTHER ==
[2020-03-06 18:07] LABS: BASO % 0.4 % (0-2.0); EOS % 0.2 % (0-4.5); HEMATOCRIT 42.6 % (32.4-45.2); LYMPH % 45.2 % (8-40); MCH 29.3 pg (25.7-33.7); MEAN PLT VOLUME 10.4 fl (7.5-11.1); NEUT % 41.2 % (42.8-82.8); PLATELET COUNT 110 K/MM3 (134-434); RBC 4.79 M/mm3 (3.60-5.2); RDW 13.5 % (11.6-15.6); WHITE BLOOD COUNT 6.6 K/mm3 (4.0-10.0)
[2020-03-06 18:08] LABS: INR 1.12 (0.83-1.09); PROTHROMBIN TIME (PATIENT) 13.7 SEC (9.7-13.0)
[2020-03-06 18:11] LABS: ACTIVATED PTT 32.8 SECONDS (25.2-36.5)
[2020-03-06] MEDS ORDERED: MAG HYDROX/AL HYDROX/SIMETH 30 ML UNIT-DOSE CUP PO ONE (18:21)
[2020-03-06] MEDS ORDERED: DEXAMETHASONE SOD PHOSPHATE 4 MG/1 ML VIAL IVPUSH ONE (18:21)
[2020-03-06] MEDS ORDERED: FAMOTIDINE 20 MG/50 ML IVPB 20 MG/50 ML MG IVPB ONE ×2 (18:21→19:36)
[2020-03-06 18:23] LABS: CHLORIDE 103 mmol/L (98-107); POTASSIUM 3.8 mmol/L (3.5-5.1); SODIUM 141 mmol/L (136-145)
[2020-03-06 18:24] LABS: GLUCOSE,RANDOM 117 mg/dL (74-106)
[2020-03-06 18:25] LABS: CALCIUM 8.3 mg/dL (8.5-10.1)
[2020-03-06 18:26] LABS: ALBUMIN 3.4 g/dl (3.4-5.0); ANION GAP 7 MMOL/L (8-16); BLOOD UREA NITROGEN 21.9 mg/dL (7-18); CO2 31 mmol/L (21-32)
[2020-03-06] MEDS ORDERED: MAG HYDROX/AL HYDROX/SIMETH 30 ML UNIT-DOSE CUP ONE (18:26)
[2020-03-06] MEDS ORDERED: DEXAMETHASONE SOD PHOSPHATE 10 MG/1 ML VIAL ONE (18:26)
[2020-03-06 18:28] LABS: BILIRUBIN,DIRECT 0.2 mg/dL (0.0-0.2); CREATININE 1.1 mg/dL (0.55-1.3)
[2020-03-06 18:29] LABS: SGOT/AST 28 U/L (15-37); SGPT/ALT 11 U/L (13-61)
[2020-03-06 18:30] LABS: BILIRUBIN,TOTAL 0.4 mg/dL (0.2-1); LDH 194 U/L (84-246); TOT PROT 7.8 g/dl (6.4-8.2)
[2020-03-06 18:31] LABS: ALK PHOS 57 U/L (45-117)
[2020-03-06 19:02] LABS: PLATELET ESTIMATE DECREASED
[2020-03-06 19:59] LABS: EPI CELLS 20 /uL (0-25.1); HYALINE CASTS 9 /uL (0-3.1); URINE APPEARANCE CLEAR; URINE BACTERIA 339 /uL (0-1359); URINE BILIRUBIN NEGATIVE (NEGATIVE); URINE COLOR DK YELLOW; URINE GLUCOSE (UA) NEGATIVE (NEGATIVE); URINE KETONE TRACE (NEGATIVE); URINE LEUK ESTERASE NEGATIVE (NEGATIVE); URINE NITRITE NEGATIVE (NEGATIVE); URINE PROTEIN 1+ (NEGATIVE); URINE RBC 19 /uL (0-23.9); URINE WBC 10 /uL (0-25.8)
[2020-03-06 20:22] LABS: N-TERMINAL BNP 193.5 pg/ml (5-450)
[2020-03-06] MEDS ORDERED: DIPHTH,PERTUSS(ACELL),TET 0.5 ML DISP.SYRIN IM ONE (20:49)
[2020-03-06 20:54] LABS: VENOUS BASE EXCESS 2.9 mmol/L (-2-2); VENOUS PCO2 67.3 mmHg (38-52); VENOUS PH 7.291 (7.310-7.410)
[2020-03-06 21:17] VITALS: BMI 21.9
[2020-03-06] MEDS: ATORVASTATIN CA 40 MG TABLET (FP) PO SCH (22:00)
[2020-03-07] MEDS: LEVOTHYROXINE NA 75 MCG TABLET (FP) PO SCH (06:36)
[2020-03-07 06:53] LABS: BASO % 0.2 % (0-2.0); HEMATOCRIT 39.7 % (32.4-45.2); HEMOGLOBIN 13.2 GM/dL (10.7-15.3); LYMPH % 30.1 % (8-40); MCH 29.4 pg (25.7-33.7); MCHC 33.3 g/dl (32.0-36.0); MEAN CELL VOLUME 88.2 fl (80-96); MEAN PLT VOLUME 10.5 fl (7.5-11.1); MONO % 9.8 % (3.8-10.2); NEUT % 59.9 % (42.8-82.8); PLATELET COUNT 97 K/MM3 (134-434); RDW 13.7 % (11.6-15.6)
[2020-03-07 07:39] LABS: ALBUMIN 3.1 g/dl (3.4-5.0); BILIRUBIN,TOTAL 0.6 mg/dL (0.2-1); BLOOD UREA NITROGEN 22.4 mg/dL (7-18); CALCIUM 8.2 mg/dL (8.5-10.1); CREATININE 0.8 mg/dL (0.55-1.3); POTASSIUM 4.3 mmol/L (3.5-5.1); TOT PROT 7.2 g/dl (6.4-8.2)
[2020-03-07] MEDS: DEXAMETHASONE SOD PHOSPHATE 4 MG/1 ML VIAL IVPUSH SCH (09:43)
[2020-03-07] MEDS: ASPIRIN 81 MG CHEWABLE TABLETS PO SCH (09:44)
[2020-03-07] MEDS: ASCORBIC ACID 500 MG TABLET (FP) PO SCH (09:44)
[2020-03-07] MEDS: ZINC SULFATE 220 MG CAPSULE (FP) PO SCH (09:44)
[2020-03-07] MEDS: CHOLECALCIFEROL (VIT D3) 1,000 UNIT (25 MCG) TABLET PO SCH (09:44)
[2020-03-07] MEDS: ENOXAPARIN NA (PORCINE) 40 MG/0.4 ML DISP.SYRIN SQ SCH (09:44)
[2020-03-07] MEDS: ATORVASTATIN CA 40 MG TABLET (FP) PO SCH (22:06)
[2020-03-07 22:25] LABS: POTASSIUM 4.5 mmol/L (3.5-5.1)
[2020-03-07 22:28] LABS: CALCIUM 8.6 mg/dL (8.5-10.1)
[2020-03-07 22:29] LABS: ALBUMIN 3.2 g/dl (3.4-5.0); BLOOD UREA NITROGEN 28.1 mg/dL (7-18)
[2020-03-07 22:32] LABS: CREATININE 1.1 mg/dL (0.55-1.3)
[2020-03-07 22:33] LABS: BILIRUBIN,TOTAL 0.3 mg/dL (0.2-1); TOT PROT 7.3 g/dl (6.4-8.2)
[2020-03-08] MEDS: BENZOCAINE/MENTH/CETYLPYRD CL 1 EACH LOZENGE MM PRN (06:17)
[2020-03-08] MEDS: LEVOTHYROXINE NA 75 MCG TABLET (FP) PO SCH (06:17)
[2020-03-08 07:09] LABS: BASO % 0.3 % (0-2.0); HEMATOCRIT 39.4 % (32.4-45.2); HEMOGLOBIN 13.1 GM/dL (10.7-15.3); LYMPH % 20.2 % (8-40); MCH 29.5 pg (25.7-33.7); MCHC 33.1 g/dl (32.0-36.0); MEAN PLT VOLUME 11.3 fl (7.5-11.1); MONO % 8.6 % (3.8-10.2); NEUT % 70.9 % (42.8-82.8); PLATELET COUNT 109 K/MM3 (134-434); RBC 4.43 M/mm3 (3.60-5.2); RDW 13.8 % (11.6-15.6); WHITE BLOOD COUNT 9.7 K/mm3 (4.0-10.0)
[2020-03-08] MEDS ORDERED: PT OWN MED DRAWER 7, Y5N ONE (09:34)
[2020-03-08] MEDS ORDERED: DEXTROSE 5%-WATER - 50 ML IVPB ONE (09:35)
[2020-03-08] MEDS ORDERED: cefTRIAXone SODIUM 1 GM VIAL ONE (09:35)
[2020-03-08] MEDS: CEFTRIAXONE 1 GM in DEXTROSE 5%-WATER - 50 ML IVPB SCH (09:55)
[2020-03-08] MEDS: ENOXAPARIN NA (PORCINE) 40 MG/0.4 ML DISP.SYRIN SQ SCH (09:55)
[2020-03-08] MEDS: ASCORBIC ACID 500 MG TABLET (FP) PO SCH ×2 (09:56→21:00)
[2020-03-08] MEDS: ZINC SULFATE 220 MG CAPSULE (FP) PO SCH (09:56)
[2020-03-08] MEDS: ASPIRIN 81 MG CHEWABLE TABLETS PO SCH (09:56)
[2020-03-08] MEDS: CHOLECALCIFEROL (VIT D3) 1,000 UNIT (25 MCG) TABLET PO SCH (09:56)
[2020-03-08] MEDS: DEXAMETHASONE SOD PHOSPHATE 4 MG/1 ML VIAL IVPUSH SCH (09:56)
[2020-03-08] MEDS ORDERED: ACETAMINOPHEN 325 MG TABLET (FP) PO PRN (10:17)
[2020-03-08] MEDS ORDERED: REMDESIVIR 200 MG in SODIUM CHLORIDE 210 ML IVPB ONE (10:55)
[2020-03-08] MEDS ORDERED: ALBUTEROL SO4 HFA INHALER IH PRN (19:56)
[2020-03-08] MEDS: ATORVASTATIN CA 40 MG TABLET (FP) PO SCH (21:00)
[2020-03-08] MEDS: MELATONIN 5 MG TABLETS PO SCH (21:00)
[2020-03-08] MEDS: FAMOTIDINE 20 MG TABLET PO SCH (21:01)
[2020-03-08] MEDS ORDERED: guaiFENesin 200 MG/10 ML 10 ML UNIT-DOSE CUPS PO PRN (22:03)
[2020-03-08] MEDS: guaiFENesin 200 MG/10 ML 10 ML UNIT-DOSE CUPS PO PRN (22:37)
[2020-03-09] MEDS: LEVOTHYROXINE NA 75 MCG TABLET (FP) PO SCH (05:59)
[2020-03-09] MEDS ORDERED: DEXTROSE 5%-WATER - 50 ML IVPB ONE (09:40)
[2020-03-09] MEDS ORDERED: cefTRIAXone SODIUM 1 GM VIAL ONE (09:40)
[2020-03-09 10:09] LABS: HEMATOCRIT 37.5 % (32.4-45.2); HEMOGLOBIN 12.2 GM/dL (10.7-15.3); MCHC 32.6 g/dl (32.0-36.0); MEAN CELL VOLUME 88.9 fl (80-96); MEAN PLT VOLUME 10.6 fl (7.5-11.1); PLATELET COUNT 111 K/MM3 (134-434); RBC 4.22 M/mm3 (3.60-5.2); RDW 13.6 % (11.6-15.6); WHITE BLOOD COUNT 8.3 K/mm3 (4.0-10.0)
[2020-03-09 10:23] LABS: CREATININE 0.9 mg/dL (0.55-1.3)
[2020-03-09 10:24] LABS: BILIRUBIN,TOTAL 0.3 mg/dL (0.2-1); TOT PROT 7.3 g/dl (6.4-8.2)
[2020-03-09] MEDS: ENOXAPARIN NA (PORCINE) 40 MG/0.4 ML DISP.SYRIN SQ SCH (10:35)
[2020-03-09] MEDS: guaiFENesin 200 MG/10 ML 10 ML UNIT-DOSE CUPS PO PRN (10:36)
[2020-03-09] MEDS: CHOLECALCIFEROL (VIT D3) 1,000 UNIT (25 MCG) TABLET PO SCH (10:36)
[2020-03-09] MEDS: CEFTRIAXONE 1 GM in DEXTROSE 5%-WATER - 50 ML IVPB SCH (10:36)
[2020-03-09] MEDS: BENZOCAINE/MENTH/CETYLPYRD CL 1 EACH LOZENGE MM PRN (10:37)
[2020-03-09] MEDS: DEXAMETHASONE SOD PHOSPHATE 4 MG/1 ML VIAL IVPUSH SCH (10:37)
[2020-03-09] MEDS: ASPIRIN 81 MG CHEWABLE TABLETS PO SCH (10:37)
[2020-03-09] MEDS: ASCORBIC ACID 500 MG TABLET (FP) PO SCH ×2 (10:37→21:53)
[2020-03-09] MEDS: ZINC SULFATE 220 MG CAPSULE (FP) PO SCH (10:38)
[2020-03-09] MEDS: FAMOTIDINE 20 MG TABLET PO SCH ×2 (10:38→21:53)
[2020-03-09] MEDS: REMDESIVIR 100 MG in SODIUM CHLORIDE 230 ML IVPB SCH (11:28)
[2020-03-09 14:13] LABS: ALBUMIN 3.1 g/dl (3.4-5.0); BLOOD UREA NITROGEN 32.3 mg/dL (7-18); CALCIUM 8.3 mg/dL (8.5-10.1); MAGNESIUM 2.1 mg/dL (1.8-2.4); PHOSPHOROUS 3.1 mg/dL (2.5-4.9); POTASSIUM 4.1 mmol/L (3.5-5.1)
[2020-03-09] MEDS: ATORVASTATIN CA 40 MG TABLET (FP) PO SCH (21:52)
[2020-03-09] MEDS: MELATONIN 5 MG TABLETS PO SCH (21:52)
[2020-03-10] MEDS: LEVOTHYROXINE NA 75 MCG TABLET (FP) PO SCH (06:07)
[2020-03-10] MEDS ORDERED: DEXTROSE 5%-WATER - 50 ML IVPB ONE (10:19)
[2020-03-10] MEDS ORDERED: cefTRIAXone SODIUM 1 GM VIAL ONE (10:19)
[2020-03-10] MEDS: BENZOCAINE/MENTH/CETYLPYRD CL 1 EACH LOZENGE MM PRN (11:51)
[2020-03-10] MEDS: guaiFENesin 200 MG/10 ML 10 ML UNIT-DOSE CUPS PO PRN ×2 (11:51→21:16)
[2020-03-10] MEDS: CEFTRIAXONE 1 GM in DEXTROSE 5%-WATER - 50 ML IVPB SCH (11:51)
[2020-03-10] MEDS: ENOXAPARIN NA (PORCINE) 40 MG/0.4 ML DISP.SYRIN SQ SCH (11:52)
[2020-03-10] MEDS: CHOLECALCIFEROL (VIT D3) 1,000 UNIT (25 MCG) TABLET PO SCH (11:53)
[2020-03-10] MEDS: DEXAMETHASONE SOD PHOSPHATE 4 MG/1 ML VIAL IVPUSH SCH (11:53)
[2020-03-10] MEDS: ASCORBIC ACID 500 MG TABLET (FP) PO SCH ×2 (11:54→21:15)
[2020-03-10] MEDS: ASPIRIN 81 MG CHEWABLE TABLETS PO SCH (11:54)
[2020-03-10] MEDS: ZINC SULFATE 220 MG CAPSULE (FP) PO SCH (11:54)
[2020-03-10] MEDS: FAMOTIDINE 20 MG TABLET PO SCH ×2 (11:55→21:15)
[2020-03-10] MEDS: REMDESIVIR 100 MG in SODIUM CHLORIDE 230 ML IVPB SCH (15:23)
[2020-03-10] MEDS: MELATONIN 5 MG TABLETS PO SCH (21:15)
[2020-03-10] MEDS: ATORVASTATIN CA 40 MG TABLET (FP) PO SCH (21:15)
[2020-03-11] MEDS: LEVOTHYROXINE NA 75 MCG TABLET (FP) PO SCH (06:00)
[2020-03-11] MEDS: CHOLECALCIFEROL (VIT D3) 1,000 UNIT (25 MCG) TABLET PO SCH (10:48)
[2020-03-11] MEDS: ASCORBIC ACID 500 MG TABLET (FP) PO SCH ×2 (10:48→23:08)
[2020-03-11] MEDS: FAMOTIDINE 20 MG TABLET PO SCH ×2 (10:48→23:08)
[2020-03-11] MEDS: ASPIRIN 81 MG CHEWABLE TABLETS PO SCH (10:50)
[2020-03-11] MEDS: ZINC SULFATE 220 MG CAPSULE (FP) PO SCH (10:50)
[2020-03-11] MEDS: ENOXAPARIN NA (PORCINE) 40 MG/0.4 ML DISP.SYRIN SQ SCH ×2 (10:50→11:04)
[2020-03-11] MEDS: REMDESIVIR 100 MG in SODIUM CHLORIDE 230 ML IVPB SCH (14:16)
[2020-03-11] MEDS: DEXAMETHASONE SOD PHOSPHATE 4 MG/1 ML VIAL IVPUSH SCH (16:35)
[2020-03-11] MEDS: guaiFENesin 200 MG/10 ML 10 ML UNIT-DOSE CUPS PO PRN (20:49)
[2020-03-11] MEDS: MELATONIN 5 MG TABLETS PO SCH (23:07)
[2020-03-11] MEDS: ATORVASTATIN CA 40 MG TABLET (FP) PO SCH (23:08)
[2020-03-12] MEDS: LEVOTHYROXINE NA 75 MCG TABLET (FP) PO SCH (07:20)
[2020-03-12] MEDS: DEXAMETHASONE SOD PHOSPHATE 4 MG/1 ML VIAL IVPUSH SCH (09:05)
[2020-03-12] MEDS: ZINC SULFATE 220 MG CAPSULE (FP) PO SCH (09:07)
[2020-03-12] MEDS: CHOLECALCIFEROL (VIT D3) 1,000 UNIT (25 MCG) TABLET PO SCH (09:08)
[2020-03-12] MEDS: FAMOTIDINE 20 MG TABLET PO SCH (09:08)
[2020-03-12] MEDS: ASPIRIN 81 MG CHEWABLE TABLETS PO SCH (09:08)
[2020-03-12] MEDS: ASCORBIC ACID 500 MG TABLET (FP) PO SCH (09:08)
[2020-03-12] MEDS: ENOXAPARIN NA (PORCINE) 40 MG/0.4 ML DISP.SYRIN SQ SCH (09:59)
[2020-03-12] MEDS: guaiFENesin 200 MG/10 ML 10 ML UNIT-DOSE CUPS PO PRN (09:59)
[2020-03-12] MEDS: REMDESIVIR 100 MG in SODIUM CHLORIDE 230 ML IVPB SCH (12:15)
[2020-03-12 15:03] VITALS: BP 114/71; PULSE 68; TEMP 98.5
== END 2020-03-12 19:02 | disposition home health service (06) | DRG 177 ==
LOC: JER 16:48 → JERBED 18:41 → J7W 20:44
PROVIDERS: ADMIT Internal Medicine; ATTEND Internal Medicine
PROC: 8E0ZXY6 Isolation (ICD-10-PCS; 2020-03-06)
PROC: XW033E5 Introduction of Remdesivir Anti-infective into Peripheral Vein, Percutaneous Approach, New Technology Group 5 (ICD-10-PCS; principal; 2020-03-08)
PROC: XW13325 Transfusion of Convalescent Plasma (Nonautologous) into Peripheral Vein, Percutaneous Approach, New Technology Group 5 (ICD-10-PCS; 2020-03-08)
DX: U07.1 COVID-19 (principal); J12.82 Pneumonia due to coronavirus disease 2019; J96.01 Acute respiratory failure with hypoxia; N39.0 Urinary tract infection, site not specified; I25.2 Old myocardial infarction; J45.909 Unspecified asthma, uncomplicated; I25.10 Atherosclerotic heart disease of native coronary artery without angina pectoris; E03.9 Hypothyroidism, unspecified; R42 Dizziness and giddiness; B96.20 Unspecified Escherichia coli [E. coli] as the cause of diseases classified elsewhere; R07.89 Other chest pain; M19.90 Unspecified osteoarthritis, unspecified site; Z95.1 Presence of aortocoronary bypass graft
CPT/HCPCS: 36415; 36430; 71045-TC-FY; 80053; 81003; 82248; 82550; 82728; 82803; 83605; 83615; 83735; 83880; 84100; 84443; 84484; 85025; 85027; 85379; 85610; 85730; 86140; 86850; 86900; 86901; 87040; 87086; 87186; 87804; 93005; 93010; 94761; 99285-25; C9399; C9803; P9017; U0003

== ENCOUNTER 2023-08-23 13:45 | Emergency (ER) | payer OTHER ==
[2023-08-23 14:29] VITALS: RESP 18; BMI 23.0
[2023-08-23 16:15] LABS: BASO % 0.4 % (0-2.0); EOS % 1.5 % (0-4.5); HEMATOCRIT 42.4 % (32.4-45.2); HEMOGLOBIN 14.1 GM/dL (10.7-15.3); LYMPH % 35.1 % (8-40); MCHC 33.2 g/dl (32.0-36.0); MEAN CELL VOLUME 90.4 fl (80-96); MEAN PLT VOLUME 10.3 fl (7.5-11.1); MONO % 9.9 % (3.8-10.2); NEUT % 53.1 % (42.8-82.8); PLATELET COUNT 158 10^3/uL (134-434); RBC 4.69 M/mm3 (3.60-5.2); RDW 13.9 % (11.6-15.6); WHITE BLOOD COUNT 9.2 K/mm3 (4.0-10.0)
[2023-08-23 16:25] LABS: INR 1.01 (0.83-1.09); PROTHROMBIN TIME (PATIENT) 11.6 SEC (9.7-13.0)
[2023-08-23 16:28] LABS: ACTIVATED PTT 31.6 SECONDS (25.2-36.5)
[2023-08-23 16:30] LABS: POTASSIUM 4.8 mmol/L (3.5-5.1)
[2023-08-23 16:32] LABS: CALCIUM 9.1 mg/dL (8.5-10.1)
[2023-08-23 16:33] LABS: ALBUMIN 3.6 g/dl (3.4-5.0); BLOOD UREA NITROGEN 19.4 mg/dL (7-18)
[2023-08-23 16:36] LABS: CREATININE 0.8 mg/dL (0.55-1.3)
[2023-08-23 16:37] LABS: BILIRUBIN,TOTAL 0.6 mg/dL (0.2-1); TOT PROT 7.1 g/dl (6.4-8.2)
[2023-08-23 17:18] VITALS: BP 139/62; PULSE 60; TEMP 97.3
[2023-08-23] MEDS ORDERED: ACETAMINOPHEN 325 MG TABLET (FP) ONE (17:19)
[2023-08-23] MEDS: ACETAMINOPHEN 325 MG TABLET (FP) PO ONE (17:27)
== END 2023-08-23 18:58 | disposition left against medical advice (07) ==
LOC: JER 13:45
DX: R07.89 Other chest pain (principal); Z20.822 Contact with and (suspected) exposure to COVID-19
CPT/HCPCS: 0241U-QW; 36415; 80053; 84484; 85025; 85610; 85730; 93005; 93010; 99284-25

== ENCOUNTER 2023-11-09 15:17 | Observation (INO) | payer OTHER ==
[2023-11-09 15:26] VITALS: RESP 18
[2023-11-09] MEDS ORDERED: morphine SULFATE 4 MG/ML VIAL ONE (17:15)
[2023-11-09] MEDS: morphine CARPU-JECT 4 MG/1 ML DISP.SYRIN IVPUSH ONE (17:38)
[2023-11-09 17:54] LABS: BASO % 0.5 % (0-2.0); EOS % 1.7 % (0-4.5); HEMATOCRIT 38.6 % (32.4-45.2); HEMOGLOBIN 12.6 GM/dL (10.7-15.3); LYMPH % 26.5 % (8-40); MCH 29.9 pg (25.7-33.7); MCHC 32.6 g/dl (32.0-36.0); MEAN CELL VOLUME 91.6 fl (80-96); MEAN PLT VOLUME 10.3 fl (7.5-11.1); MONO % 11.1 % (3.8-10.2); NEUT % 60.2 % (42.8-82.8); PLATELET COUNT 143 10^3/uL (134-434); RBC 4.21 M/mm3 (3.60-5.2); RDW 13.9 % (11.6-15.6); WHITE BLOOD COUNT 10.3 K/mm3 (4.0-10.0)
[2023-11-09 18:11] LABS: POTASSIUM 4.5 mmol/L (3.5-5.1)
[2023-11-09 18:13] LABS: CALCIUM 8.8 mg/dL (8.5-10.1)
[2023-11-09 18:14] LABS: ALBUMIN 3.4 g/dl (3.4-5.0); BLOOD UREA NITROGEN 32.1 mg/dL (7-18)
[2023-11-09 18:16] LABS: CREATININE 0.7 mg/dL (0.55-1.3)
[2023-11-09 18:18] LABS: BILIRUBIN,TOTAL 0.5 mg/dL (0.2-1); TOT PROT 6.6 g/dl (6.4-8.2)
[2023-11-09] MEDS ORDERED: LIDOCAINE 5% TOPICAL PATCH ONE (18:31)
[2023-11-09] MEDS: LIDOCAINE 5% TOPICAL PATCH TP ONE (18:40)
[2023-11-09] MEDS ORDERED: HYDROmorphone HCl 2 MG/ML VIAL ONE (20:33)
[2023-11-09] MEDS ORDERED: ACETAMINOPHEN INJECTION 100 ML ONE (20:33)
[2023-11-09] MEDS: HYDROmorphone HCl 2 MG/ML VIAL IVPUSH ONE (20:56)
[2023-11-09] MEDS ORDERED: MORPHINE SULFATE 2 MG/ML SYRINGE IVPUSH PRN (23:06)
[2023-11-10] MEDS: ACETAMINOPHEN 1000 MG/100 ML BAG IVPB ONE (00:19)
[2023-11-10 02:37] VITALS: BMI 21.9
[2023-11-10] MEDS ORDERED: ALBUTEROL SO4 HFA INHALER IH PRN (06:33)
[2023-11-10] MEDS: LEVOTHYROXINE NA 25 MCG TABLET (FP) PO SCH (07:37)
[2023-11-10] MEDS: ACETAMINOPHEN 1000 MG/100 ML BAG IVPB PRN (08:47)
[2023-11-10] MEDS: MIRTAZAPINE 15 MG TABLET (FP) PO SCH (09:12)
[2023-11-10] MEDS: BACLOFEN 10 MG TABLET (FP) PO SCH (09:12)
[2023-11-10] MEDS: GABAPENTIN 300 MG CAPSULE PO SCH ×2 (09:12→14:05)
[2023-11-10] MEDS: PANTOPRAZOLE 40 MG TABLET PO SCH (09:12)
[2023-11-10] MEDS: LIDOCAINE 5% TOPICAL PATCH TP SCH (10:17)
[2023-11-10] MEDS: oxyCODONE HCL 5 MG TABLET PO PRN (10:17)
[2023-11-10] MEDS: POLYETHYLENE GLYCOL (HEALTHYLAX) 3350 17 GM PACKET PO SCH (10:29)
[2023-11-10 10:37] LABS: BASO % 0.4 % (0-2.0); EOS % 1.9 % (0-4.5); HEMATOCRIT 38.3 % (32.4-45.2); HEMOGLOBIN 12.6 GM/dL (10.7-15.3); LYMPH % 28.5 % (8-40); MCH 30.1 pg (25.7-33.7); MCHC 32.9 g/dl (32.0-36.0); MEAN CELL VOLUME 91.6 fl (80-96); MONO % 11.6 % (3.8-10.2); NEUT % 57.6 % (42.8-82.8); PLATELET COUNT 142 10^3/uL (134-434); RBC 4.18 M/mm3 (3.60-5.2); RDW 13.9 % (11.6-15.6)
[2023-11-10 14:41] LABS: BLOOD UREA NITROGEN 26.7 mg/dL (7-18); CALCIUM 8.9 mg/dL (8.5-10.1); CREATININE 0.8 mg/dL (0.55-1.3); POTASSIUM 3.8 mmol/L (3.5-5.1)
[2023-11-10] MEDS: SODIUM CHLORIDE 250 ML IV ONE (15:00)
[2023-11-10] MEDS: SODIUM CHLORIDE 1,000 ML IV SCH (18:25)
[2023-11-10] MEDS: LIDOCAINE PATCH REMOVAL MC SCH (22:01)
[2023-11-11 12:54] LABS: PH,URINE 5.5 (5.0-8.0); URINE APPEARANCE CLEAR; URINE BILIRUBIN NEGATIVE (NEGATIVE); URINE COLOR YELLOW; URINE GLUCOSE (UA) NEGATIVE (NEGATIVE); URINE KETONE NEGATIVE (NEGATIVE); URINE LEUK ESTERASE NEGATIVE (NEGATIVE); URINE NITRITE NEGATIVE (NEGATIVE); URINE PROTEIN NEGATIVE (NEGATIVE); URINE UROBILINOGEN 0.2 mg/dL (0.2-1.0)
[2023-11-12] MEDS: PATIENT'S OWN MEDICATION (NON-FORMULARY) (Mirabegron [Myrbetriq] 50 MG Tab.Er.24h) PO SCH (11:35)
[2023-11-13] MEDS: LOSARTAN POTASSIUM 25 MG TABLET PO SCH (09:53)
[2023-11-15 14:38] VITALS: BP 111/56; PULSE 85; TEMP 98.5
== END 2023-11-15 19:38 | disposition home health service (06) ==
LOC: JER 15:17 → JERBED 19:21 → J6S 11-10 01:48
PROVIDERS: ADMIT Internal Medicine; ATTEND Family Medicine
PROC: 3E033NZ Introduction of Analgesics, Hypnotics, Sedatives into Peripheral Vein, Percutaneous Approach (ICD-10-PCS; principal; 2023-11-09)
PROC: 3E0337Z Introduction of Electrolytic and Water Balance Substance into Peripheral Vein, Percutaneous Approach (ICD-10-PCS; 2023-11-09)
PROC: 3E0337Z Introduction of Electrolytic and Water Balance Substance into Peripheral Vein, Percutaneous Approach (ICD-10-PCS; 2023-11-09)
DX: N99.89 Other postprocedural complications and disorders of genitourinary system (principal); T81.9XXA Unspecified complication of procedure, initial encounter; S32.009A Unspecified fracture of unspecified lumbar vertebra, initial encounter for closed fracture; X58.XXXA Exposure to other specified factors, initial encounter; R20.0 Anesthesia of skin; I25.10 Atherosclerotic heart disease of native coronary artery without angina pectoris; F32.A Depression, unspecified; E78.5 Hyperlipidemia, unspecified; E03.9 Hypothyroidism, unspecified; Z87.891 Personal history of nicotine dependence; J44.9 Chronic obstructive pulmonary disease, unspecified; R26.81 Unsteadiness on feet; Y99.8 Other external cause status; Z88.0 Allergy status to penicillin
CPT/HCPCS: 36415; 72131-TC; 80048; 80053; 81003; 85025; 86850; 86900; 86901; 87086; 96361; 96374; 96375; 97116-GP; 97162-GP; 99285-25; G0378; J0131; J0475